=== PATIENT | female | born 1995 | race Caucasian/White ===

== ENCOUNTER 2023-10-31 09:46 | Emergency (ER) | payer OTHER ==
[2023-10-31 10:01] VITALS: RESP 18; TEMP 98.4
--- NOTE | 2023-10-31 10:22 | ED ---
GI Bleed HPI - General Chief complaint: GI Bleed Stated complaint: rectal bleeding Time Seen by Provider: 10/31/23 10:20 Source: patient, RN notes reviewed Mode of arrival: ambulatory Limitations: no limitations - History of Present Illness Initial comments: 28-year-old female presented to the ER with a chief complaint of rectal bleeding. Patient states she is scheduled for a colonoscopy with Dr. Mei on . She states she has been having intermittent rectal bleeding for for the past couple of years which prompted her to have a colonoscopy. She states last night she started having bright red blood rectal bleeding which persisted into this morning which brought her to the ER. She does report extreme pain with bowel movements and reports bowel movements are thin and occasionally diarrhea. Denies any melena. Denies any blood thinner use. She does report a history of hemorrhoids and has been using topical lidocaine without relief. Patient is endorsing a lower crampy abdominal pain. Denies any fevers, chills, nausea, vomiting, urinary complaints. - Related Data Home Medications Medication Instructions Recorded Confirmed Cetirizine HCl [Zyrtec] 10 mg PO DAILY PRN 10/31/23 10/31/23 Nitroglycerin [Nitroglycerin 1 applic RECTAL DAILY PRN 10/31/23 10/31/23 Rectal Oint] diphenhydrAMINE [Benadryl] 25 mg PO DAILY PRN 10/31/23 10/31/23 Allergies Allergy/AdvReac Type Severity Reaction Status Date / Time No Known Allergies Allergy Verified 10/31/23 13:31 Review of Systems ROS Statement: Those systems with pertinent positive or pertinent negative responses have been documented in the HPI. ROS Other: All systems not noted in ROS Statement are negative. Past Medical History Additional Past Medical History / Comment(s): hemorrhoids, SVT, History of Any Multi-Drug Resistant Organisms: None Reported Past Surgical History: Cardiac Ablation Past Psychological History: No Psychological Hx Reported Smoking Status: Never smoker Past Alcohol Use History: Occasional Past Drug Use History: None Reported General Exam Limitations: no limitations General appearance: alert, in no apparent distress Respiratory exam: Present: normal lung sounds bilaterally. Absent: respiratory distress, wheezes, rales, rhonchi, stridor Cardiovascular Exam: Present: regular rate, normal rhythm, normal heart sounds. Absent: systolic murmur, diastolic murmur, rubs, gallop, clicks GI/Abdominal exam: Present: soft, tenderness (Suprapubic), normal bowel sounds Rectal exam: Present: normal rectal tone, tenderness, other (Small skin tag present no gross blood. Anal fissue noted) Skin exam: Present: warm, dry, intact, normal color. Absent: rash Course Vital Signs 10/31/23 10/31/23 09:57 13:23 Temperature 98.4 F Pulse Rate 71 85 Respiratory 18 18 Rate Blood Pressure 120/77 112/60 O2 Sat by Pulse 99 98 Oximetry - Reevaluation(s) Reevaluation #1: 10/31/23 10:22 Rectal exam completed and chaperoned by Donna WEAVER. Medical Decision Making - Medical Decision Making Was pt. sent in by a medical professional or institution (, PA, [employer], urgent care, hospital, or snf...) When possible be specific @ -No Did you speak to anyone other than the patient for history (EMS, parent, family, police, friend...)? What history was obtained from this source @ -No Did you review nursing and triage notes (agree or disagree)? Why? @ -I reviewed and agree with nursing and triage notes Were old charts reviewed (outside hosp., previous admission, EMS record, old EKG, old radiological studies, urgent care reports/EKG's, snf records)? Report findings @ -No old charts were reviewed Differential Diagnosis (chest pain, altered mental status, abdominal pain women, abdominal pain men, vaginal bleeding, weakness, fever, dyspnea, syncope, head ache, dizziness, GI bleed, back pain, seizure, CVA, palpatations, mental health, musculoskeletal)? @ -Differential GI Bleed: Esophageal varices, aortoenteric fistula, Rachel- Barragan, gastritis, peptic ulcer disease, diverticulosis, inflammatory bowel disease, hemorrhoids, fissure, colitis, malignancy, Meckels diverticulum, this is not meant to be an all-inclusive list. EKG interpreted by me (3pts min.). @ -None X-rays interpreted by me (1pt min.). @ -None done CT interpreted by me (1pt min.). @ -None done U/S interpreted by me (1pt. min.). @ -None done What testing was considered but not performed or refused? (CT, X-rays, U/S, labs)? Why? @ -None What meds were considered but not given or refused? Why? @ -None Did you discuss the management of the patient with other professionals ( professionals i.e. , PA, [employer], lab, RT, psych nurse, social worker school, trial lawyer, teacher, canine enforcement officer, case advocate)? Give summary @ -No Was smoking cessation discussed for >3mins.? @ -No Was critical care preformed (if so, how long)? @ -No Were there social determinants of health that impacted care today? How? (Homelessness, low income, unemployed, alcoholism, drug addiction, transportation, low edu. Level, literacy, decrease access to med. care, assisted, rehab)? @ -No Was there de-escalation of care discussed even if they declined (Discuss DNR or withdrawal of care, Hospice)? DNR status @ -No What co-morbidities impacted this encounter? (DM, HTN, Smoking, COPD, CAD, Cancer, CVA, ARF, Chemo, Hep., AIDS, mental health diagnosis, sleep apnea, morbid obesity)? @ -None Was patient admitted / discharged? Hospital course, mention meds given and route, prescriptions, significant lab abnormalities, going to OR and other pertinent info. @ -Discharge. 28-year-old female presented to the ER with a chief complaint of rectal bleeding. History and physical exam completed. Vitals stable. Patient in no signs of acute distress and nontoxic-appearing. Exam remarkable for mild suprapubic abdominal tenderness. Normal bowel sounds. No rebound or guarding. Rectal exam performed and chaperoned by Donna WEAVER. No gross blood on exam. Normal rectal tone. There is an anal fissure in the posterior sphincter. Laboratory studies obtained. Hemoglobin stable at 12.2. Coagulation factors n ormal. Laboratory studies otherwise unremarkable. Stool occult is positive but believed to be due from anal fissure. As patient is in stable condition and has close follow-up with Dr. Mei on , 11-03-2023 imaging was not obtained. Patient is agreeable to this. I advised her to follow-up closely with Dr. Mei and attend colonoscopy as scheduled on . Nitroglycerin rectal cream prescribed. Strict return parameters discussed. Patient discharged in stable condition. Patient verbally expressed understanding and agreement with care plan. Case discussed with ED attending, Dr. Augustin. Undiagnosed new problem with uncertain prognosis? @ -No Drug Therapy requiring intensive monitoring for toxicity (Heparin, Nitro, Insulin, Cardizem)? @ -No Were any procedures done? @ -No Diagnosis/symptom? @ -Anal fissure Acute, or Chronic, or Acute on Chronic? @ -Acute Uncomplicated (without systemic symptoms) or Complicated (systemic symptoms)? @ -Uncomplicated Side effects of treatment? @ -No Exacerbation, Progression, or Severe Exacerbation? @ -No Poses a threat to life or bodily function? How? (Chest pain, [place], [place], pneumonia, PE, COPD, DKA, ARF, appy, cholecystitis, CVA, Diverticulitis, Homicidal, Suicidal, threat to staff... and all critical care pts) @ -No - Lab Data Result diagrams: 10/31/23 10:19 10/31/23 10:19 Lab Results 10/31/23 10/31/23 10/31/23 Range/Units 10:19 10:19 10:19 WBC 5.9 (3.8-10.6) k/uL RBC 4.10 (3.80-5.40) m/uL Hgb 12.2 (11.4-16.0) gm/dL Hct 36.2 (34.0-46.0) % MCV 88.2 (80.0-100.0) fL MCH 29.8 (25.0-35.0) pg MCHC 33.8 (31.0-37.0) g/dL RDW 12.7 (11.5-15.5) % Plt Count 152 (150-450) k/uL MPV 9.1 Neutrophils % 69 % Lymphocytes % 23 % Monocytes % 5 % Eosinophils % 2 % Basophils % 0 % Neutrophils # 4.1 (1.3-7.7) k/uL Lymphocytes # 1.3 (1.0-4.8) k/uL Monocytes # 0.3 (0-1.0) k/uL Eosinophils # 0.1 (0-0.7) k/uL Basophils # 0.0 (0-0.2) k/uL PT 10.8 (10.0-12.5) sec INR 1.0 (<1.2) APTT 26.8 (22.0-30.0) sec Sodium (137-145) mmol/L Potassium (3.5-5.1) mmol/L Chloride (98-107) mmol/L Carbon Dioxide (22-30) mmol/L Anion Gap mmol/L BUN (7-17) mg/dL Creatinine (0.52-1.04) mg/dL Est GFR (CKD-EPI)AfAm (>60 ml/min/1.73 sqM) Est GFR (CKD-EPI)NonAf (>60 ml/min/1.73 sqM) Glucose (74-99) mg/dL Plasma Lactic Acid Saeid (0.7-2.0) mmol/L Calcium (8.4-10.2) mg/dL Total Bilirubin (0.2-1.3) mg/dL AST (14-36) U/L ALT (4-34) U/L Alkaline Phosphatase (38-126) U/L Total Protein (6.3-8.2) g/dL Albumin (3.5-5.0) g/dL Amylase (30-110) U/L Lipase (23-300) U/L Stool Occult Blood Positive H (Negative) Blood Type Blood Type Confirm Blood Type Recheck Bld Type Recheck Status Antibody Screen Spec Expiration Date 10/31/23 10/31/23 10/31/23 Range/Units 10:19 10:19 10:50 WBC (3.8-10.6) k/uL RBC (3.80-5.40) m/uL Hgb (11.4-16.0) gm/dL Hct (34.0-46.0) % MCV (80.0-100.0) fL MCH (25.0-35.0) pg MCHC (31.0-37.0) g/dL RDW (11.5-15.5) % Plt Count (150-450) k/uL MPV Neutrophils % % Lymphocytes % % Monocytes % % Eosinophils % % Basophils % % Neutrophils # (1.3-7.7) k/uL Lymphocytes # (1.0-4.8) k/uL Monocytes # (0-1.0) k/uL Eosinophils # (0-0.7) k/uL Basophils # (0-0.2) k/uL PT (10.0-12.5) sec INR (<1.2) APTT (22.0-30.0) sec Sodium 139 (137-145) mmol/L Potassium 4.8 (3.5-5.1) mmol/L Chloride 108 H (98-107) mmol/L Carbon Dioxide 24 (22-30) mmol/L Anion Gap 7 mmol/L BUN 14 (7-17) mg/dL Creatinine 0.68 (0.52-1.04) mg/dL Est GFR (CKD-EPI)AfAm >90 (>60 ml/min/1.73 sqM) Est GFR (CKD-EPI)NonAf >90 (>60 ml/min/1.73 sqM) Glucose 88 (74-99) mg/dL Plasma Lactic Acid Saeid 0.8 (0.7-2.0) mmol/L Calcium 9.4 (8.4-10.2) mg/dL Total Bilirubin 0.7 (0.2-1.3) mg/dL AST 28 (14-36) U/L ALT 13 (4-34) U/L Alkaline Phosphatase 54 (38-126) U/L Total Protein 7.3 (6.3-8.2) g/dL Albumin 4.5 (3.5-5.0) g/dL Amylase 67 (30-110) U/L Lipase 74 (23-300) U/L Stool Occult Blood (Negative) Blood Type Blood Type Confirm O Positive Blood Type Recheck Bld Type Recheck Status Antibody Screen Spec Expiration Date 10/31/23 Range/Units 10:56 WBC (3.8-10.6) k/uL RBC (3.80-5.40) m/uL Hgb (11.4-16.0) gm/dL Hct (34.0-46.0) % MCV (80.0-100.0) fL MCH (25.0-35.0) pg MCHC (31.0-37.0) g/dL RDW (11.5-15.5) % Plt Count (150-450) k/uL MPV Neutrophils % % Lymphocytes % % Monocytes % % Eosinophils % % Basophils % % Neutrophils # (1.3-7.7) k/uL Lymphocytes # (1.0-4.8) k/uL Monocytes # (0-1.0) k/uL Eosinophils # (0-0.7) k/uL Basophils # (0-0.2) k/uL PT (10.0-12.5) sec INR (<1.2) APTT (22.0-30.0) sec Sodium (137-145) mmol/L Potassium (3.5-5.1) mmol/L Chloride (98-107) mmol/L Carbon Dioxide (22-30) mmol/L Anion Gap mmol/L BUN (7-17) mg/dL Creatinine (0.52-1.04) mg/dL Est GFR (CKD-EPI)AfAm (>60 ml/min/1.73 sqM) Est GFR (CKD-EPI)NonAf (>60 ml/min/1.73 sqM) Glucose (74-99) mg/dL Plasma Lactic Acid Saeid (0.7-2.0) mmol/L Calcium (8.4-10.2) mg/dL Total Bilirubin (0.2-1.3) mg/dL AST (14-36) U/L ALT (4-34) U/L Alkaline Phosphatase (38-126) U/L Total Protein (6.3-8.2) g/dL Albumin (3.5-5.0) g/dL Amylase (30-110) U/L Lipase (23-300) U/L Stool Occult Blood (Negative) Blood Type O Positive Blood Type Confirm Blood Type Recheck No Previous Record Bld Type Recheck Status CABO Indicated Antibody Screen NEGATIVE Spec Expiration Date 11/03/20232355 Disposition Clinical Impression: Anal fissure Disposition: HOME SELF-CARE Condition: Stable Instructions (If sedation given, give patient instructions): Anal Fissure (ED) Additional Instructions: I recommended MiraLAX daily. Follow-up with Dr. Mei on as scheduled for colonoscopy. Return to the ER for any new or worsening concerns. Is patient prescribed a controlled substance at d/c from ED?: No Referrals: Wendy Prince NPC [STAFF PHYSICIAN] - 1-2 days Porsche Mei MD [STAFF PHYSICIAN] - 1-2 days Time of Disposition: 13:10
[2023-10-31] MEDS: SODIUM CHLORIDE 0.9% 1,000 ML IV STA (10:29)
[2023-10-31] MEDS: ACETAMINOPHEN TAB 325 MG TAB PO STA (10:29)
[2023-10-31 11:08] LABS: Partial Thromboplastin Time 26.8 sec (22.0-30.0); Prothrombin Time 10.8 sec (10.0-12.5)
[2023-10-31 11:11] LABS: ALT 13 U/L (4-34); African American GFR (CKD) >90 (>60 ml/min/1.73 sqM); Amylase 67 U/L (30-110); Anion Gap 7 mmol/L; Blood Urea Nitrogen 14 mg/dL (7-17); Calcium 9.4 mg/dL (8.4-10.2); Carbon Dioxide 24 mmol/L (22-30); Chloride 108 mmol/L (98-107); Glucose 88 mg/dL (74-99); Lipase 74 U/L (23-300); Non-African American GFR(CKD) >90 (>60 ml/min/1.73 sqM); Sodium 139 mmol/L (137-145); Total Bilirubin 0.7 mg/dL (0.2-1.3)
[2023-10-31 11:17] LABS: AST 28 U/L (14-36); Albumin 4.5 g/dL (3.5-5.0); Alkaline Phosphatase 54 U/L (38-126); Potassium 4.8 mmol/L (3.5-5.1); Total Protein 7.3 g/dL (6.3-8.2)
[2023-10-31 12:40] LABS: Basophils % (A) 0 %; Eosinophils # (A) 0.1 k/uL (0-0.7); Eosinophils % (A) 2 %; HCT 36.2 % (34.0-46.0); HGB 12.2 gm/dL (11.4-16.0); Lymphocytes # (A) 1.3 k/uL (1.0-4.8); Lymphocytes % (A) 23 %; MCH 29.8 pg (25.0-35.0); MCHC 33.8 g/dL (31.0-37.0); MCV 88.2 fL (80.0-100.0); Mean Platelet Volume 9.1; Monocytes # (A) 0.3 k/uL (0-1.0); Monocytes % (A) 5 %; Neutrophils # (A) 4.1 k/uL (1.3-7.7); Neutrophils % (A) 69 %; Platelet Count 152 k/uL (150-450); RDW 12.7 % (11.5-15.5); WBC 5.9 k/uL (3.8-10.6)
[2023-10-31] MEDS: KETOROLAC 15 MG/ML 1 ML VIAL IVP STA (12:52)
[2023-10-31 13:29] VITALS: BP 112/60; PULSE 85
== END 2023-10-31 13:42 | disposition home or self-care (01) ==
LOC: EC 09:46
DX: K60.2 Anal fissure, unspecified (principal)
CPT/HCPCS: 99284; 96374 ×2; 96361 ×2; 36415; 86900; 86901; 80053; 82150; 83605; 83690; 85025; 85610; 85730; 86850; 82272; 99285; J1885

== ENCOUNTER 2023-11-03 08:24 | Day surgery (SDC) | payer OTHER ==
[2023-11-03 09:02] VITALS: RESP 16; TEMP 97.6
[2023-11-03] MEDS: IV FLUID CONTINUATION 1,000 ML IV ONE (09:03)
[2023-11-03] MEDS: LACTATED RINGERS 1,000 ML IV SCH (09:04)
--- NOTE | 2023-11-03 09:26 | P.GSHP ---
History of Present Illness H&P Date: 11/03/23 CHIEF COMPLAINT: GI bleeding HISTORY OF PRESENT ILLNESS: The patient is a 28-year-old female who presents for GI bleed. Lower endoscopy was offered for further evaluation and management. PAST MEDICAL HISTORY: Please see list. PAST SURGICAL HISTORY: Please see list. MEDICATIONS: Please see list. ALLERGIES: Please see list. SOCIAL HISTORY: No illicit drug use FAMILY HISTORY: No reports of Crohn disease or ulcerative colitis. REVIEW OF ORGAN SYSTEMS: CONSTITUTIONAL: No reports of fevers or chills. PHYSICAL EXAM: VITAL SIGNS: Stable GENERAL: Well-developed pleasant in no acute distress. HEENT: No scleral icterus. Extraocular movements grossly intact. Moist buccal mucosa. NECK: Supple without lymphadenopathy. CHEST: Unlabored respirations. Equal bilateral excursions. CARDIOVASCULAR: Regular rate and rhythm. Distal 2+ pulses. ABDOMEN: Soft, nontender, nondistended. MUSCULOSKELETAL: No clubbing, cyanosis, or edema. ASSESSMENT: 1. GI bleed PLAN: 1. Recommend proceeding with a lower endoscopy Past Medical History Past Medical History: Skin Disorder Additional Past Medical History / Comment(s): hemorrhoids, SVT, History of Any Multi-Drug Resistant Organisms: None Reported Past Surgical History: Cardiac Ablation Additional Past Surgical History / Comment(s): ablation for ?SVT per pt @ [place] has not followed with anyone regularly. Past Anesthesia/Blood Transfusion Reactions: Postoperative Nausea & Vomiting (PONV) Past Psychological History: No Psychological Hx Reported Smoking Status: Never smoker Past Alcohol Use History: Occasional Past Drug Use History: None Reported - Past Family History Mother Family Medical History: Thyroid Disorder Additional Family Medical History / Comment(s): grandmother had colon cancer Father Family Medical History: Diabetes Mellitus Medications and Allergies Home Medications Medication Instructions Recorded Confirmed Type Cetirizine HCl [Zyrtec] 10 mg PO DAILY PRN 10/31/23 10/31/23 History Nitroglycerin [Nitroglycerin 1 applic RECTAL DAILY PRN 10/31/23 10/31/23 History Rectal Oint] diphenhydrAMINE [Benadryl] 25 mg PO DAILY PRN 10/31/23 10/31/23 History Allergies Allergy/AdvReac Type Severity Reaction Status Date / Time No Known Allergies Allergy Verified 11/03/23 08:56 Surgical - Exam Vital Signs Temp Pulse Resp BP Pulse Ox 97.6 F 80 16 119/76 100 11/03/23 09:00 11/03/23 09:00 11/03/23 09:00 11/03/23 09:00 11/03/23 09:00
[2023-11-03] MEDS ORDERED: PROPOFOL 10 MG/ML 20 ML VIAL IV ONE (09:28)
[2023-11-03 10:07] VITALS: BP 108/71; PULSE 71
--- NOTE | 2023-11-03 10:15 | P.PCN ---
Date of Procedure: 11/03/23 Description of Procedure: PREOPERATIVE DIAGNOSIS: GI bleed Rectal bleeding Anal fissure POSTOPERATIVE DIAGNOSIS: Diverticulosis, scattered Internal and external hemorrhoids, grade 2. OPERATION: Colonoscopy to the cecum, ileocecal valve and appendiceal orifice. SURGEON: Porsche Mei MD. ANESTHESIA: MAC. INDICATIONS: The patient is a 28-year-old female who presents for GI bleed. Benefits and risks were described and informed consent was obtained. DESCRIPTION OF PROCEDURE: The patient had undergone GoLytely prep. The patient had been brought into the operating room and laid in the left lateral decubitus position. After adequate intravenous sedation, the rectum was examined with 2% lidocaine jelly. External hemorrhoids were encountered. The rectal tone was within normal limits. No lesions were palpated in the rectal vault. An Olympus colonoscope was advanced until the cecum, ileocecal valve and appendiceal orifice were clearly viewed. The prep was excellent. Scattered diverticulosis was encountered. No colonic polyps were found. No evidence of focal colitis was found. Retroflexion of the scope demonstrated grade 2 internal hemorrhoids without active bleeding or inflammation. The colon was desufflated. The patient had tolerated the procedure well. Withdrawal time was over 6 minutes. FINDINGS: Aronchick preparation quality scale 1+(1-5) Internal hemorrhoids, grade 2 External prolapsed hemorrhoids, grade 2 No arteriovenous malformations. No adenomatous polyps. Scattered diverticulosis No focal colitis. RECOMMENDATIONS: Lower endoscopy as needed Plan - Discharge Summary Discharge Rx Participant: No New Discharge Prescriptions: Continue Cetirizine HCl [Zyrtec] 10 mg PO DAILY PRN PRN Reason: Allergy Symptoms Nitroglycerin [Nitroglycerin Rectal Oint] 1 applic RECTAL DAILY PRN PRN Reason: Pain diphenhydrAMINE [Benadryl] 25 mg PO DAILY PRN PRN Reason: Allergy Symptoms Discharge Medication List Cetirizine HCl [Zyrtec] 10 mg PO DAILY PRN 10/31/23 [History] Nitroglycerin [Nitroglycerin Rectal Oint] 1 applic RECTAL DAILY PRN 10/31/23 [History] diphenhydrAMINE [Benadryl] 25 mg PO DAILY PRN 10/31/23 [History] Follow up Appointment(s)/Referral(s): Porsche Mei MD [STAFF PHYSICIAN] - 11/22/23 4:00 pm Patient Instructions/Handouts: Diverticulosis Diet (GEN), Diverticulosis (DC) Discharge Disposition: HOME SELF-CARE
== END 2023-11-03 10:42 | disposition home or self-care (01) ==
LOC: ORWHC2ENDO 08:24
PROVIDERS: ATTEND Surgery Plastic and Reconstructive Surgery
DX: K92.2 Gastrointestinal hemorrhage, unspecified (principal); Z87.2 Personal history of diseases of the skin and subcutaneous tissue; Z86.59 Personal history of other mental and behavioral disorders; Z83.49 Family history of other endocrine, nutritional and metabolic diseases; Z80.0 Family history of malignant neoplasm of digestive organs; Z83.3 Family history of diabetes mellitus; Z79.52 Long term (current) use of systemic steroids; Z79.1 Long term (current) use of non-steroidal anti-inflammatories (NSAID)
CPT/HCPCS: 81025; 45378; J2704